=== PATIENT | female | born 1990 | race Caucasian/White ===

== ENCOUNTER 2022-03-29 23:43 | Emergency (ER) | payer MEDICAID, SELFPAY ==
[2022-03-29 23:47] VITALS: BP 115/85; PULSE 94; RESP 18; TEMP 36.9; O2SAT 96; BMI 20.3
--- NOTE | 2022-03-29 23:55 | ED.GENADULT ---
HPI - General Adult General Chief complaint: General Medical Stated complaint: employee, general Time Seen by Provider: 03/29/22 23:55 Source: patient Mode of arrival: ambulatory Limitations: no limitations History of Present Illness HPI narrative: Patient was healthy came here for dysuria hematuria for last few hours. History of same multiple times whenever she goes to beach at least 2 times a year no flank pain no nausea no vomiting no fever or chills no history of kidney stones Related Data Previous Rx's Medication Instructions Recorded cefuroxime axetil 250 mg tablet 250 mg PO BID 7 days #14 tabs 03/30/22 phenazopyridine 200 mg tablet 200 mg PO TID 2 days #6 tabs 03/30/22 (Pyridium) Allergies Allergy/AdvReac Type Severity Reaction Status Date / Time No Known Allergies Allergy Verified 03/30/22 00:01 Review of Systems Review of Systems: Yes all other systems are reviewed and are negative [facility] Social History Social History Advance Directives: No Advance Directives Information Provided: Yes Physical Exam ED Vital Signs: Vital Signs - 24 hr 03/29/22 23:47 Temperature 98.4 F Pulse Rate 94 Respiratory Rate 18 Blood Pressure 115/85 Pulse Oximetry 96 Oxygen Delivery Method Room Air BMI result Body Mass Index 20.3 Appearance: Alert. Oriented X3. No acute distress. ENT: Pharynx normal. Oral Mucosa moist Neck: Normal inspection. Neck supple. CVS: Normal heart rate and rhythm. Pulses normal. Respiratory: No respiratory distress. Equal air entry bilateral, Abdomen: Soft and nontender. Bowel sounds are present, no mass palpable, no CVA tenderness Skin: Skin warm and dry. Normal skin color. Normal skin turgor. Extremities: No lower extremity edema. No calf tenderness Neuro: Oriented X 3. Medications Administered Discontinued Medications Generic Name Dose Route Start Last Admin Trade Name Freq PRN Reason Stop Dose Admin Cefuroxime Axetil 250 mg 03/30/22 00:03 03/30/22 00:23 Cefuroxime Axetil 250 Mg Tablet PO 03/30/22 00:04 250 mg ONCE ONE Administration Phenazopyridine HCl 200 mg 03/30/22 00:03 03/30/22 00:23 Phenazopyridine Hcl 200 Mg Tablet PO 03/30/22 00:04 200 mg ONCE ONE Administration Medical Decision Making Medical Decision Making [facility] Narrative: Patient has hemorrhagic cystitis uncomplicated discharge her on Ceftin and Pyridium patient was to follow with urologist if bleeding continues Lab Data [facility] Lab Attestation statement: I reviewed the patient's lab results. Labs: Lab Results 03/30/22 03/30/22 Range/Units 00:26 00:26 Urine Color Red A Urine Appearance Cloudy Urine pH 7.0 (5.0-9.0) Ur Specific [place] 1.015 (1.005-1.025) Urine Protein 100 (2+) H (Neg-Trace) mg/dL Urine Glucose (UA) Negative (Negative) mg/dL Urine Ketones Negative (Negative) mg/dL Urine Blood Large (3+) H (Negative) Urine Nitrite Negative (Negative) Ur Leukocyte Esterase Large (3+) H (Negative) Urine RBC >20 H (0-2) /HPF Urine WBC >50 H (0-5) /HPF Ur Squamous Epith Cells 0-2 (0-2) /HPF Urine Bacteria None Seen (None Seen) Hyaline Casts 0-2 (0-2) /LPF Urine Test NEGATIVE (NEGATIVE) Discharge Plan Discharge Clinical Impression: Acute hemorrhagic cystitis Patient Disposition: Home, Self-Care Instructions: Urinary Tract Infection in Women (ED) Additional Instructions: Drink plenty of fluids Take antibiotics as prescribed Follow with PCP if not better Prescriptions: New cefuroxime axetil 250 mg tablet 250 mg PO BID 7 Days Qty: 14 0RF phenazopyridine [Pyridium] 200 mg tablet 200 mg PO TID 2 Days Qty: 6 0RF
[2022-03-30] MEDS: Phenazopyridine HCL 200 MG TABLET PO (00:23)
[2022-03-30 00:40] LABS: Appearance Urine Cloudy; Color Urine Red; Glucose Urine UA Negative (Negative); Leukocyte Esterase Urine Large (3+) (Negative); Nitrite Urine Negative (Negative); Specific Gravity - Urine 1.015 (1.005-1.025); UMIC TRIGGER UACC YES; Urine Blood Large (3+) (Negative); Urine Ketones Negative (Negative); Urine Protein 100 (2+) mg/dL (Neg-Trace)
[2022-03-30 00:41] LABS: UPreg QC Valid YES; Urine Pregnancy NEGATIVE (NEGATIVE)
[2022-03-30 00:44] LABS: Bacteria Urine None Seen (None Seen); Hyaline Casts Urine 0-2 /LPF (0-2); RBC Urine >20 /HPF (0-2); Squamous Epithelial Cell Urine 0-2 /HPF (0-2); UACC Culture Trigger YES; WBC Urine >50 /HPF (0-5)
== END 2022-03-30 01:01 | disposition home or self-care (01) ==
PROVIDERS: Emergency Provider Internal Medicine; PCP Nurse Practitioner Family
DX: N30.01 Acute cystitis with hematuria (principal)
CPT/HCPCS: 81001; 81025; 87086; 87147; 99283